=== PATIENT | female | born 1960 | race Caucasian/White ===

== ENCOUNTER 2022-07-24 17:58 | Emergency (ER) | payer MEDICAID ==
[~2022-07-24] VITALS: Ht 160 cm; Wt 99.8 kg
[2022-07-24 18:01] VITALS: BP 150/105
--- NOTE | 2022-07-24 18:16 | NUR ---
bib family left hip and left knee pain 10 since april. worse today. denies fall or trauma or heavy lifting. ambulatory with cane.
[2022-07-24] MEDS ORDERED: LIDOCAINE 5% 1 EA PATCH TP ONE (18:50)
[2022-07-24] MEDS ORDERED: KETOROLAC 30 MG/ML VIAL IM ONE (18:50)
--- NOTE | 2022-07-24 18:58 | NUR ---
medicated for pain as ordered
--- NOTE | 2022-07-24 19:20 | NUR ---
report given to maurisio hoover
[2022-07-24] MEDS ORDERED: IBUP-2213 PO (20:14)
[2022-07-24] MEDS ORDERED: LID5T TP (20:14)
[2022-07-24 20:37] VITALS: BP 139/67
--- NOTE | 2022-07-24 20:37 | NUR ---
Patient discharged with v/s stable. Written and verbal after care instructions given and explained. Patient verbalized understanding. Ambulatory with steady gait. All questions addressed prior to discharge. Advised to follow up with PMD.
== END 2022-07-24 20:37 | disposition home or self-care (01) ==
LOC: MED 17:58
DX: M25.552 Pain in left hip (principal); M25.561 Pain in right knee; M13.861 Other specified arthritis, right knee; M13.852 Other specified arthritis, left hip; E11.9 Type 2 diabetes mellitus without complications; I10 Essential (primary) hypertension; E78.00 Pure hypercholesterolemia, unspecified; Z79.4 Long term (current) use of insulin; Z79.899 Other long term (current) drug therapy
CPT/HCPCS: 72170; 73502; 73560; 96372; 99284; J1885; Q0092